=== PATIENT | female | born 1975 | race Caucasian/White ===

== ENCOUNTER 2019-01-23 18:01 | Emergency (ER) | payer OTHER, MEDICAID ==
[~2019-01-23] VITALS: Ht 165.1 cm; Wt 158.8 kg
[~2019-01-23 18:01] MED LIST: ACETAMINOPHEN-1 EAC1 PO; ANAPROX DS550 MG PO; AUGMENTIN 875875 MG PO; BACTRIM DS TAB1 EACH PO; BACTROBAN15 GM TP; CIPROFLOXACIN500 M1 PO; DOXYCYCLINE 10100 MG PO; FLAGYL500 MG PO; HYDROCODON-ACE1 EAC7 PO; NAPROSYN500 MG; NAPROSYN500 MG PO; NOHOMEMEDICATIONS; NORCO 5-325 TA1 EACH PO; PHENERGAN 25 MG25 M1 PO; PREDNISONE 20 M20 M1 PO; PYRIDIUM200 MG PO; TRAMADOL 50 MG50 MG PO; ULTRAM 50MG TAB50 MG PO; ZOFRAN ODT4 MG PO
[2019-01-23] MEDS ORDERED: ZPAK PO (19:06)
[2019-01-23] MEDS ORDERED: MEDROLDOSEPACK PO (19:08)
[2019-01-23] MEDS ORDERED: TESSALON PERLE100 MG PO (19:08)
[2019-01-23] MEDS ORDERED: PROMETHAZINE V120 ML PO (19:08)
[2019-01-23] MEDS ORDERED: PROAIR HFA8.5 GM INH (19:08)
[2019-01-23 19:20] VITALS: BP 148/80
== END 2019-01-23 19:27 | disposition home or self-care (01) ==
LOC: M.ERS 18:01
DX: J20.9 Acute bronchitis, unspecified (principal); Z96.652 Presence of left artificial knee joint; Z98.51 Tubal ligation status; Z77.22 Contact with and (suspected) exposure to environmental tobacco smoke (acute) (chronic)

== ENCOUNTER 2019-01-28 13:11 | Emergency (ER) | payer OTHER, MEDICAID ==
[~2019-01-28] VITALS: Ht 165.1 cm; Wt 154.2 kg
[~2019-01-28 13:11] MED LIST changes: +MEDROLDOSEPACK PO; +PROAIR HFA8.5 GM INH; +PROMETHAZINE V120 ML PO; +TESSALON PERLE100 MG PO; +ZPAK PO
[2019-01-28] MEDS ORDERED: AMOXICILLIN 50500 MG PO (14:10)
[2019-01-28 14:20] VITALS: BP 170/96
== END 2019-01-28 14:20 | disposition home or self-care (01) ==
LOC: M.ERS 13:11
DX: J02.0 Streptococcal pharyngitis (principal); Z77.22 Contact with and (suspected) exposure to environmental tobacco smoke (acute) (chronic); Z98.51 Tubal ligation status; Z96.652 Presence of left artificial knee joint